=== PATIENT | male | born 1990 | race Caucasian/White ===

== ENCOUNTER 2018-06-29 18:40 | Inpatient (IN) | payer MEDICAID ==
[~2018-06-29] VITALS: Ht 175.3 cm; Wt 58.9 kg
[2018-06-29 21:30] LABS: BASOPHILS % (AUTO) 0.6 % (0.0-2.0); EOSINOPHILS % (AUTO) 0.6 % (1.0-6.0); HEMATOCRIT 46.4 % (41-53); HEMOGLOBIN 15.9 g/dL (13.5-17.5); LYMPHOCYTES # (AUTO) 2.4 K/uL (1.0-4.8); MEAN CORPUSCULAR HEMOGLOBIN 32.3 pg (26.0-34.0); MEAN CORPUSCULAR HGB CONC 34.2 G/dL (31.0-37.0); MEAN CORPUSCULAR VOLUME 94 fL (80-100); MONOCYTES # (AUTO) 1.1 K/uL (0.1-1.0); MONOCYTES % (AUTO) 7.5 % (2.0-9.0); NEUTROPHILS # (AUTO) 10.6 K/uL (1.8-7.7); NEUTROPHILS % (AUTO) 74.3 % (40.0-70.0); PLATELET COUNT (AUTO) 212 K/uL (150-450); RED BLOOD CELL COUNT(AUTO) 4.92 MIL/uL (4.50-5.90)
[2018-06-29] MEDS ORDERED: OLAN10TA3 PO (21:40)
[2018-06-29 21:51] LABS: ANION GAP 13 mmol/L (8-16); CALCIUM, TOTAL 9.4 mg/dL (8.8-10.5); CARBON DIOXIDE 24 mmol/L (22-29); CHLORIDE 104 mmol/L (98-107); CREATININE 1.02 mg/dL (0.60-1.30); GLOMERULAR FILTR. RATE CALC > 60 mL/min (>60); GLUCOSE,RANDOM 93 mg/dL (70-110); POTASSIUM 3.8 mmol/L (3.5-5.1); SODIUM SERUM 141 mmol/L (136-145); UREA NITROGEN, BLOOD 13 mg/dL (7-18)
[2018-06-29 21:53] LABS: ALANINE AMINOTRANSFERASE 22 U/L (12-78); ALBUMIN 4.4 g/dL (3.4-5.0); ALKALINE PHOSPHATASE 81 U/L (46-116); ASPARTATE AMINOTRANSFERASE 25 U/L (15-37); BILIRUBIN,TOTAL 0.8 mg/dL (0.1-1.0); TOTAL PROTEIN, SERUM 7.6 g/dL (6.4-8.2)
[2018-06-29] MEDS ORDERED: LORazepam 2 MG TABLET PO ONE (23:00)
[2018-06-29] MEDS ORDERED: DiphenhydrAMINE HCL 25 MG CAPSULE PO ONE (23:00)
[2018-06-29] MEDS ORDERED: IBUPROFEN 600 MG TABLET PO ONE (23:00)
[2018-06-29] MEDS ORDERED: PERTUSS(ACELL),DIPH,TET VAC/PF 0.5 ML VIAL IM ONE (23:00)
[2018-06-29] MEDS ORDERED: BACITRACIN 0.9 GM PACKET OINTMENT TP ONE (23:00)
[2018-06-29 23:23] LABS: AMPHET/METH SCREEN,URINE NEGATIVE (NEGATIVE); BARBITURATE SCREEN, URINE NEGATIVE (NEGATIVE); BENZODIAZEPINES SCREEN,URINE NEGATIVE (NEGATIVE); CANNABINOID SCREEN,URINE POSITIVE (NEGATIVE); COCAINE SCREEN,URINE NEGATIVE (NEGATIVE); METHADONE SCREEN, URINE NEGATIVE (NEGATIVE); OPIATE SCREEN,URINE NEGATIVE (NEGATIVE)
[2018-06-29 23:25] LABS: PHENCYCLIDINE SCREEN,URINE NEGATIVE (NEGATIVE)
[2018-06-29] MEDS ORDERED: ZOLPIDEM TARTRATE 10 MG TABLET PO PRN (23:45)
[2018-06-29] MEDS ORDERED: LORazepam 2 MG TABLET PO PRN (23:45)
[2018-06-29] MEDS ORDERED: OLANZapine 5 MG RAPDIS TABLET PO PRN (23:45)
[2018-06-30 00:15] LABS: CHOL/HDL RATIO 3.4 (4.2-7.3)
[2018-06-30] MEDS ORDERED: LORazepam 2 MG/ML VIAL IM ONE (01:00)
[2018-06-30] MEDS ORDERED: HALOPERIDOL LACTATE 5 MG/ML VIAL IM ONE (01:00)
[2018-06-30] MEDS ORDERED: DiphenhydrAMINE HCL 50 MG/ML VIAL IM ONE (01:00)
[2018-06-30 01:55] VITALS: BP 112/76
[2018-06-30 08:33] VITALS: BP 108/84
[2018-06-30 09:06] LABS: HEMOGLOBIN A1C 5.3 % (4.5-6.2)
[2018-06-30 09:39] LABS: FREE T4 (FREE THYROXINE) 1.19 ng/dL (0.76-1.46); THYROID STIMULATING HORMONE 1.81 uIU/mL (0.36-3.74)
[2018-06-30] MEDS ORDERED: TUBERCULIN, PURIFIED PROTEIN DERIVATIVE 5 TU/0.1 ML SYG ID ONE (13:00)
[2018-06-30] MEDS ORDERED: PROMETHAZINE HCL 25 MG TABLET PO PRN (13:00)
[2018-06-30] MEDS ORDERED: LOPERAMIDE HCL 2 MG CAPSULE PO PRN (13:00)
[2018-06-30] MEDS ORDERED: MAG HYDROX/AL HYDROX/SIMETH ES 30 ML SUSPENSION UDCUP PO PRN (13:00)
[2018-06-30] MEDS ORDERED: ACETAMINOPHEN 325 MG TABLET PO PRN (13:00)
[2018-06-30] MEDS ORDERED: HydrOXYzine PAMOATE 50 MG CAPSULE PO PRN (13:00)
[2018-06-30] MEDS ORDERED: MAGNESIUM HYDROXIDE SUSPENSION 30 ML UDCUP PO PRN (13:00)
[2018-06-30] MEDS ORDERED: GuaiFENesin/D-METHORPHAN [SUGAR-FREE] 200-20MG/10 ML SYRUP UDCUP PO PRN (13:00)
[2018-06-30 16:09] VITALS: BP 116/74
[2018-06-30] MEDS: THIAMINE HCL 100 MG TABLET PO SCH (16:22)
[2018-06-30] MEDS: DIVALPROEX SODIUM 500 MG ER TABLET PO SCH (20:05)
[2018-06-30] MEDS ORDERED: OLANZapine 5 MG RAPDIS TABLET PO SCH (21:00)
[2018-06-30] MEDS ORDERED: ARIPiprazole 10 MG TABLET PO SCH (21:00)
[2018-07-01 01:00] VITALS: BP 115/73
[2018-07-01 08:11] LABS: BASOPHILS % (AUTO) 0.7 % (0.0-2.0); EOSINOPHILS % (AUTO) 3.3 % (1.0-6.0); HEMATOCRIT 44.5 % (41-53); HEMOGLOBIN 15.2 g/dL (13.5-17.5); LYMPHOCYTES % (AUTO) 27.8 % (22.0-44.0); MEAN CORPUSCULAR HEMOGLOBIN 32.7 pg (26.0-34.0); MEAN CORPUSCULAR HGB CONC 34.2 G/dL (31.0-37.0); MEAN CORPUSCULAR VOLUME 96 fL (80-100); MONOCYTES # (AUTO) 0.5 K/uL (0.1-1.0); MONOCYTES % (AUTO) 6.9 % (2.0-9.0); NEUTROPHILS # (AUTO) 4.3 K/uL (1.8-7.7); NEUTROPHILS % (AUTO) 61.3 % (40.0-70.0); PLATELET COUNT (AUTO) 187 K/uL (150-450); RED BLOOD CELL COUNT(AUTO) 4.66 MIL/uL (4.50-5.90); RED CELL DISTRIBUTION WIDTH 12.9 % (11.5-14.5)
[2018-07-01] MEDS: MULTIVITAMINS WITH MINERALS, THERAPEUTIC TABLET PO SCH (08:46)
[2018-07-01] MEDS: NALTREXONE HCL 50 MG TABLET PO SCH (08:46)
[2018-07-01] MEDS: THIAMINE HCL 100 MG TABLET PO SCH ×2 (08:46→16:56)
[2018-07-01] MEDS: FOLIC ACID 1 MG TABLET PO SCH (08:46)
[2018-07-01 09:14] VITALS: BP 101/65
[2018-07-01 16:49] VITALS: BP 119/57
[2018-07-01] MEDS ORDERED: NALT50TA PO (17:20)
[2018-07-01] MEDS ORDERED: ARIP15TA2 PO (17:20)
[2018-07-01] MEDS ORDERED: DIVA500T52 PO (17:20)
[2018-07-01] MEDS: DIVALPROEX SODIUM 500 MG ER TABLET PO SCH (20:16)
[2018-07-01] MEDS ORDERED: ARIPiprazole 15 MG TABLET PO SCH (21:00)
[2018-07-02 03:53] VITALS: BP 117/74
[2018-07-02] MEDS ORDERED: DIVA-78 PO (08:14)
[2018-07-02] MEDS ORDERED: NALT50TA6 PO (08:14)
[2018-07-02] MEDS ORDERED: ARIP15TA2 PO (08:14)
[2018-07-02 08:36] VITALS: BP 120/64
[2018-07-02] MEDS: THIAMINE HCL 100 MG TABLET PO SCH (09:08)
[2018-07-02] MEDS: MULTIVITAMINS WITH MINERALS, THERAPEUTIC TABLET PO SCH (09:08)
[2018-07-02] MEDS: NALTREXONE HCL 50 MG TABLET PO SCH (09:08)
[2018-07-02] MEDS: FOLIC ACID 1 MG TABLET PO SCH (09:08)
== END 2018-07-02 10:50 | disposition home or self-care (01) | DRG 750 ==
LOC: EMS 18:41 → B2S 23:51
PROVIDERS: ADMIT Psychiatry & Neurology Psychiatry; ATTEND Psychiatry & Neurology Psychiatry
DX: F20.0 Paranoid schizophrenia (principal); D72.829 Elevated white blood cell count, unspecified; Z91.19 Patient's noncompliance with other medical treatment and regimen; F12.90 Cannabis use, unspecified, uncomplicated; S60.222A Contusion of left hand, initial encounter; S60.221A Contusion of right hand, initial encounter; S61.211A Laceration without foreign body of left index finger without damage to nail, initial encounter; X58.XXXA Exposure to other specified factors, initial encounter; Y93.89 Activity, other specified; Z81.8 Family history of other mental and behavioral disorders; Z87.891 Personal history of nicotine dependence; Y92.89 Other specified places as the place of occurrence of the external cause; Y99.8 Other external cause status; Z28.21 Immunization not carried out because of patient refusal
CPT/HCPCS: 80074; 83036; 84439; 84443; 96372; G0480; J1200; J1630; J2060

== ENCOUNTER 2018-09-07 16:20 | Inpatient (IN) | payer MEDICAID, OTHER ==
[~2018-09-07] VITALS: Ht 175.3 cm; Wt 58.6 kg
[~2018-09-07 16:20] MED LIST: ARIP15TA2 PO; DIVA-78 PO; DIVA500T52 PO; NALT50TA PO; NALT50TA6 PO
[2018-09-07] MEDS ORDERED: HALOPERIDOL LACTATE 5 MG/ML VIAL IM ONE (16:30)
[2018-09-07] MEDS ORDERED: LORazepam 2 MG/ML VIAL IM ONE (16:30)
[2018-09-07] MEDS ORDERED: DiphenhydrAMINE HCL 50 MG/ML VIAL IM ONE (16:30)
[2018-09-07] MEDS ORDERED: GuaiFENesin/D-METHORPHAN [SUGAR-FREE] 200-20MG/10 ML SYRUP UDCUP PO PRN (18:30)
[2018-09-07] MEDS ORDERED: HydrOXYzine PAMOATE 50 MG CAPSULE PO PRN (18:30)
[2018-09-07] MEDS ORDERED: ZOLPIDEM TARTRATE 10 MG TABLET PO PRN (18:30)
[2018-09-07] MEDS ORDERED: OLANZapine 5 MG RAPDIS TABLET PO PRN (18:30)
[2018-09-07] MEDS ORDERED: PROMETHAZINE HCL 25 MG TABLET PO PRN (18:30)
[2018-09-07] MEDS ORDERED: LORazepam 2 MG TABLET PO PRN (18:30)
[2018-09-07] MEDS ORDERED: MAG HYDROX/AL HYDROX/SIMETH ES 30 ML SUSPENSION UDCUP PO PRN (18:30)
[2018-09-07] MEDS ORDERED: MAGNESIUM HYDROXIDE SUSPENSION 30 ML UDCUP PO PRN (18:30)
[2018-09-07] MEDS ORDERED: ACETAMINOPHEN 325 MG TABLET PO PRN (18:30)
[2018-09-07] MEDS ORDERED: LOPERAMIDE HCL 2 MG CAPSULE PO PRN (18:30)
[2018-09-07 18:59] LABS: BASOPHILS % (AUTO) 0.7 % (0.0-2.0); EOSINOPHILS % (AUTO) 0.2 % (1.0-6.0); HEMATOCRIT 42.4 % (41-53); HEMOGLOBIN 14.4 g/dL (13.5-17.5); LYMPHOCYTES # (AUTO) 1.1 K/uL (1.0-4.8); LYMPHOCYTES % (AUTO) 13.9 % (22.0-44.0); MEAN CORPUSCULAR HEMOGLOBIN 32.6 pg (26.0-34.0); MEAN CORPUSCULAR VOLUME 96 fL (80-100); MONOCYTES # (AUTO) 0.6 K/uL (0.1-1.0); MONOCYTES % (AUTO) 7.7 % (2.0-9.0); NEUTROPHILS # (AUTO) 6.4 K/uL (1.8-7.7); NEUTROPHILS % (AUTO) 77.5 % (40.0-70.0); PLATELET COUNT (AUTO) 184 K/uL (150-450); RED BLOOD CELL COUNT(AUTO) 4.43 MIL/uL (4.50-5.90); RED CELL DISTRIBUTION WIDTH 13.2 % (11.5-14.5)
[2018-09-07 19:17] LABS: ANION GAP 12 mmol/L (8-16); CARBON DIOXIDE 27 mmol/L (22-29); CHLORIDE 102 mmol/L (98-107); GLOMERULAR FILTR. RATE CALC > 60 mL/min (>60); GLUCOSE,RANDOM 92 mg/dL (70-110); POTASSIUM 4.4 mmol/L (3.5-5.1); SODIUM SERUM 141 mmol/L (136-145); UREA NITROGEN, BLOOD 14 mg/dL (7-18)
[2018-09-07 19:54] LABS: ALANINE AMINOTRANSFERASE 16 U/L (12-78); ALBUMIN 4.2 g/dL (3.4-5.0); ALKALINE PHOSPHATASE 66 U/L (46-116); ASPARTATE AMINOTRANSFERASE 25 U/L (15-37); BILIRUBIN,TOTAL 1.2 mg/dL (0.1-1.0)
[2018-09-07] MEDS: THIAMINE HCL 100 MG TABLET PO SCH (22:13)
[2018-09-07] MEDS: DIVALPROEX SODIUM 500 MG ER TABLET PO SCH (22:13)
[2018-09-08] MEDS: FOLIC ACID 1 MG TABLET PO SCH (08:11)
[2018-09-08] MEDS: THIAMINE HCL 100 MG TABLET PO SCH ×2 (08:11→17:06)
[2018-09-08] MEDS: NALTREXONE HCL 50 MG TABLET PO SCH (08:11)
[2018-09-08] MEDS: MULTIVITAMINS WITH MINERALS, THERAPEUTIC TABLET PO SCH (08:11)
[2018-09-08] MEDS: ARIPiprazole 15 MG TABLET PO SCH (08:18)
[2018-09-08 12:42] LABS: AMPHET/METH SCREEN,URINE NEGATIVE (NEGATIVE); BARBITURATE SCREEN, URINE NEGATIVE (NEGATIVE); BENZODIAZEPINES SCREEN,URINE NEGATIVE (NEGATIVE); CANNABINOID SCREEN,URINE POSITIVE (NEGATIVE); COCAINE SCREEN,URINE NEGATIVE (NEGATIVE); METHADONE SCREEN, URINE NEGATIVE (NEGATIVE); OPIATE SCREEN,URINE NEGATIVE (NEGATIVE)
[2018-09-08 12:43] LABS: PHENCYCLIDINE SCREEN,URINE NEGATIVE (NEGATIVE)
[2018-09-08 16:16] VITALS: BP 125/68
[2018-09-08 17:37] VITALS: BP 125/68
[2018-09-08] MEDS: DIVALPROEX SODIUM 500 MG ER TABLET PO SCH (20:36)
[2018-09-09 09:40] VITALS: BP 104/51
[2018-09-09] MEDS: FOLIC ACID 1 MG TABLET PO SCH (10:24)
[2018-09-09] MEDS: MULTIVITAMINS WITH MINERALS, THERAPEUTIC TABLET PO SCH (10:24)
[2018-09-09] MEDS: NALTREXONE HCL 50 MG TABLET PO SCH (10:24)
[2018-09-09] MEDS: ARIPiprazole 15 MG TABLET PO SCH (10:24)
[2018-09-09] MEDS: THIAMINE HCL 100 MG TABLET PO SCH ×2 (10:24→16:56)
[2018-09-09 16:03] VITALS: BP 126/79
[2018-09-09] MEDS: DIVALPROEX SODIUM 500 MG ER TABLET PO SCH (20:33)
[2018-09-09] MEDS ORDERED: OLANZapine 5 MG RAPDIS TABLET PO SCH (21:00)
[2018-09-10] MEDS: THIAMINE HCL 100 MG TABLET PO SCH ×2 (08:31→16:22)
[2018-09-10] MEDS: MULTIVITAMINS WITH MINERALS, THERAPEUTIC TABLET PO SCH (08:31)
[2018-09-10] MEDS: NALTREXONE HCL 50 MG TABLET PO SCH (08:31)
[2018-09-10] MEDS: FOLIC ACID 1 MG TABLET PO SCH (08:31)
[2018-09-10 08:45] VITALS: BP 112/71
[2018-09-10 16:30] VITALS: BP 116/74
[2018-09-10] MEDS ORDERED: NALT50TA PO (16:58)
[2018-09-10] MEDS ORDERED: DIVA500T52 PO (16:58)
[2018-09-10] MEDS ORDERED: OLAN10TA22 PO (16:58)
[2018-09-10] MEDS: DIVALPROEX SODIUM 500 MG ER TABLET PO SCH (20:29)
[2018-09-10] MEDS ORDERED: OLANZapine 10 MG RAPDIS TABLET PO SCH (21:00)
[2018-09-11 08:18] VITALS: BP 135/91
[2018-09-11] MEDS: NALTREXONE HCL 50 MG TABLET PO SCH (08:55)
[2018-09-11] MEDS: THIAMINE HCL 100 MG TABLET PO SCH (08:55)
[2018-09-11] MEDS: FOLIC ACID 1 MG TABLET PO SCH (08:55)
[2018-09-11] MEDS: MULTIVITAMINS WITH MINERALS, THERAPEUTIC TABLET PO SCH (08:55)
== END 2018-09-11 11:30 | disposition home or self-care (01) | DRG 750 ==
LOC: EMS 16:22 → 3EC 09-08 15:47
PROVIDERS: ADMIT Psychiatry & Neurology Psychiatry; ATTEND Psychiatry & Neurology Psychiatry
DX: F20.0 Paranoid schizophrenia (principal); R17 Unspecified jaundice; F12.90 Cannabis use, unspecified, uncomplicated; D72.829 Elevated white blood cell count, unspecified; F17.210 Nicotine dependence, cigarettes, uncomplicated; Z81.8 Family history of other mental and behavioral disorders; Z91.14 Patient's other noncompliance with medication regimen
CPT/HCPCS: 96372; 99291; G0480; J1200; J1630; J2060

== ENCOUNTER 2018-10-21 18:28 | Inpatient (IN) | payer MEDICAID, OTHER ==
[~2018-10-21] VITALS: Ht 170.2 cm; Wt 59.1 kg
[~2018-10-21 18:28] MED LIST changes: -ARIP15TA2 PO; -DIVA-78 PO; -NALT50TA6 PO; +OLAN10TA22 PO
[2018-10-21 20:36] LABS: BASOPHILS % (AUTO) 0.6 % (0.0-2.0); EOSINOPHILS % (AUTO) 1.7 % (1.0-6.0); HEMATOCRIT 42.6 % (41-53); HEMOGLOBIN 14.2 g/dL (13.5-17.5); LYMPHOCYTES # (AUTO) 1.7 K/uL (1.0-4.8); LYMPHOCYTES % (AUTO) 19.3 % (22.0-44.0); MEAN CORPUSCULAR HEMOGLOBIN 32.7 pg (26.0-34.0); MEAN CORPUSCULAR HGB CONC 33.3 G/dL (31.0-37.0); MEAN CORPUSCULAR VOLUME 98 fL (80-100); MONOCYTES # (AUTO) 0.5 K/uL (0.1-1.0); MONOCYTES % (AUTO) 5.9 % (2.0-9.0); NEUTROPHILS # (AUTO) 6.3 K/uL (1.8-7.7); NEUTROPHILS % (AUTO) 72.5 % (40.0-70.0); PLATELET COUNT (AUTO) 195 K/uL (150-450); RED BLOOD CELL COUNT(AUTO) 4.34 MIL/uL (4.50-5.90); RED CELL DISTRIBUTION WIDTH 13.1 % (11.5-14.5)
[2018-10-21 20:46] LABS: ANION GAP 9 mmol/L (8-16); CALCIUM, TOTAL 9.2 mg/dL (8.8-10.5); CARBON DIOXIDE 29 mmol/L (22-29); CHLORIDE 103 mmol/L (98-107); CREATININE 0.98 mg/dL (0.60-1.30); GLOMERULAR FILTR. RATE CALC > 60 mL/min (>60); GLUCOSE,RANDOM 105 mg/dL (70-110); POTASSIUM 3.9 mmol/L (3.5-5.1); SODIUM SERUM 141 mmol/L (136-145); UREA NITROGEN, BLOOD 9 mg/dL (7-18)
[2018-10-21 20:53] LABS: ALANINE AMINOTRANSFERASE 16 U/L (12-78); ALKALINE PHOSPHATASE 76 U/L (46-116); ASPARTATE AMINOTRANSFERASE 17 U/L (15-37); BILIRUBIN,TOTAL 0.7 mg/dL (0.1-1.0); VALPROIC ACID 33 mcg/mL (50-100)
[2018-10-22] MEDS ORDERED: ZOLPIDEM TARTRATE 10 MG TABLET PO PRN
[2018-10-22] MEDS ORDERED: LORazepam 2 MG TABLET PO PRN
[2018-10-22] MEDS ORDERED: HALOPERIDOL 5 MG TABLET PO PRN
[2018-10-22 02:01] VITALS: BP 121/87
[2018-10-22 08:10] VITALS: BP 109/68
[2018-10-22] MEDS ORDERED: ACETAMINOPHEN 325 MG TABLET PO PRN (09:15)
[2018-10-22] MEDS ORDERED: IBUPROFEN 600 MG TABLET PO PRN (09:15)
[2018-10-22 10:18] LABS: AMPHET/METH SCREEN,URINE NEGATIVE (NEGATIVE); BARBITURATE SCREEN, URINE NEGATIVE (NEGATIVE); BENZODIAZEPINES SCREEN,URINE NEGATIVE (NEGATIVE); CANNABINOID SCREEN,URINE POSITIVE (NEGATIVE); COCAINE SCREEN,URINE NEGATIVE (NEGATIVE); METHADONE SCREEN, URINE NEGATIVE (NEGATIVE); OPIATE SCREEN,URINE NEGATIVE (NEGATIVE); PHENCYCLIDINE SCREEN,URINE NEGATIVE (NEGATIVE)
[2018-10-22 10:23] LABS: APPEARANCE,URINE CLEAR (CLEAR); BILIRUBIN,URINE NEGATIVE (NEGATIVE); GLUCOSE, URINE (UA) NEGATIVE (NEGATIVE); KETONES,URINE NEGATIVE (NEGATIVE); LEUKOCYTE ESTERASE ,URINE NEGATIVE (NEGATIVE); NITRATE,URINE NEGATIVE (NEGATIVE); OCCULT BLOOD,URINE NEGATIVE (NEGATIVE); PROTEIN,URINE NEGATIVE (NEGATIVE)
[2018-10-22 16:09] VITALS: BP 130/79
[2018-10-22] MEDS: DIVALPROEX SODIUM 500 MG ER TABLET PO SCH (20:59)
[2018-10-22] MEDS: OLANZapine 10 MG RAPDIS TABLET PO SCH (20:59)
[2018-10-23 11:13] VITALS: BP 99/63
[2018-10-23] MEDS: NALTREXONE HCL 50 MG TABLET PO SCH (12:44)
[2018-10-23 16:46] VITALS: BP 102/61
[2018-10-23] MEDS: DIVALPROEX SODIUM 500 MG ER TABLET PO SCH (20:25)
[2018-10-23] MEDS: OLANZapine 10 MG RAPDIS TABLET PO SCH (20:25)
[2018-10-24 04:50] VITALS: BP 119/76
[2018-10-24 08:05] VITALS: BP 126/75
[2018-10-24] MEDS: NALTREXONE HCL 50 MG TABLET PO SCH (08:58)
[2018-10-24 19:09] VITALS: BP 133/74
[2018-10-24] MEDS: OLANZapine 10 MG RAPDIS TABLET PO SCH (20:44)
[2018-10-24] MEDS: DIVALPROEX SODIUM 500 MG ER TABLET PO SCH (20:44)
[2018-10-25 08:05] VITALS: BP 98/50
[2018-10-25] MEDS: NALTREXONE HCL 50 MG TABLET PO SCH (08:40)
[2018-10-25 20:56] VITALS: BP 105/62
[2018-10-25] MEDS: DIVALPROEX SODIUM 500 MG ER TABLET PO SCH (21:00)
[2018-10-25] MEDS: OLANZapine 10 MG RAPDIS TABLET PO SCH (21:00)
[2018-10-26] MEDS: NALTREXONE HCL 50 MG TABLET PO SCH (09:04)
[2018-10-26 10:45] VITALS: BP 96/52
== END 2018-10-26 10:00 | disposition home or self-care (01) | DRG 750 ==
LOC: EMS 18:29 → 3EI 10-22 00:09
PROVIDERS: ADMIT Psychiatry & Neurology Psychiatry; ATTEND Psychiatry & Neurology Psychiatry
DX: F20.0 Paranoid schizophrenia (principal); Z91.19 Patient's noncompliance with other medical treatment and regimen; F12.90 Cannabis use, unspecified, uncomplicated; F17.210 Nicotine dependence, cigarettes, uncomplicated; G43.909 Migraine, unspecified, not intractable, without status migrainosus; Z71.6 Tobacco abuse counseling; Z79.899 Other long term (current) drug therapy
CPT/HCPCS: 80307; G0480

== ENCOUNTER 2019-03-28 09:39 | Inpatient (IN) | payer MEDICAID, OTHER ==
[~2019-03-28] VITALS: Ht 167.6 cm; Wt 60.3 kg
[2019-03-28 10:49] LABS: BASOPHILS % (AUTO) 1.2 % (0.0-2.0); EOSINOPHILS % (AUTO) 1.8 % (1.0-6.0); HEMATOCRIT 48.3 % (41-53); HEMOGLOBIN 16.7 g/dL (13.5-17.5); LYMPHOCYTES # (AUTO) 1.4 K/uL (1.0-4.8); LYMPHOCYTES % (AUTO) 13.3 % (22.0-44.0); MEAN CORPUSCULAR HEMOGLOBIN 32.5 pg (26.0-34.0); MEAN CORPUSCULAR HGB CONC 34.7 G/dL (31.0-37.0); MEAN CORPUSCULAR VOLUME 94 fL (80-100); MONOCYTES # (AUTO) 0.5 K/uL (0.1-1.0); NEUTROPHILS % (AUTO) 78.7 % (40.0-70.0); PLATELET COUNT (AUTO) 245 K/uL (150-450); RED BLOOD CELL COUNT(AUTO) 5.16 MIL/uL (4.50-5.90); RED CELL DISTRIBUTION WIDTH 12.6 % (11.5-14.5)
[2019-03-28 10:59] LABS: ANION GAP 7 mmol/L (8-16); CALCIUM, TOTAL 9.4 mg/dL (8.8-10.5); CARBON DIOXIDE 30 mmol/L (22-29); CHLORIDE 104 mmol/L (98-107); CREATININE 0.81 mg/dL (0.60-1.30); GLOMERULAR FILTR. RATE CALC > 60 mL/min (>60); GLUCOSE,RANDOM 100 mg/dL (70-110); POTASSIUM 4.3 mmol/L (3.5-5.1); SODIUM SERUM 141 mmol/L (136-145); UREA NITROGEN, BLOOD 7 mg/dL (7-18)
[2019-03-28 11:01] LABS: AMPHET/METH SCREEN,URINE NEGATIVE (NEGATIVE); BARBITURATE SCREEN, URINE NEGATIVE (NEGATIVE); BENZODIAZEPINES SCREEN,URINE NEGATIVE (NEGATIVE); CANNABINOID SCREEN,URINE POSITIVE (NEGATIVE); COCAINE SCREEN,URINE NEGATIVE (NEGATIVE); METHADONE SCREEN, URINE NEGATIVE (NEGATIVE); OPIATE SCREEN,URINE NEGATIVE (NEGATIVE); PHENCYCLIDINE SCREEN,URINE NEGATIVE (NEGATIVE)
[2019-03-28 11:05] LABS: ALANINE AMINOTRANSFERASE 11 U/L (12-78); ALBUMIN 4.4 g/dL (3.4-5.0); ALKALINE PHOSPHATASE 113 U/L (46-116); ASPARTATE AMINOTRANSFERASE 17 U/L (15-37); BILIRUBIN,TOTAL 0.6 mg/dL (0.1-1.0); TOTAL PROTEIN, SERUM 8.2 g/dL (6.4-8.2)
[2019-03-28] MEDS ORDERED: DiphenhydrAMINE HCL 50 MG/ML VIAL ONE (11:42)
[2019-03-28] MEDS ORDERED: LORazepam 2 MG/ML VIAL ONE (11:42)
[2019-03-28] MEDS ORDERED: HALOPERIDOL LACTATE 5 MG/ML VIAL ONE (11:42)
[2019-03-28] MEDS ORDERED: LORazepam 2 MG/ML VIAL IM ONE (11:45)
[2019-03-28] MEDS ORDERED: HALOPERIDOL LACTATE 5 MG/ML VIAL IM ONE (11:45)
[2019-03-28] MEDS ORDERED: DiphenhydrAMINE HCL 50 MG/ML VIAL IM ONE (11:45)
[2019-03-28] MEDS ORDERED: HALOPERIDOL 5 MG TABLET PO PRN (14:30)
[2019-03-28] MEDS ORDERED: LORazepam 2 MG TABLET PO PRN (14:30)
[2019-03-28] MEDS ORDERED: ZOLPIDEM TARTRATE 10 MG TABLET PO PRN (14:30)
[2019-03-28 17:37] VITALS: BP 142/86
[2019-03-28] MEDS: DIVALPROEX SODIUM 500 MG ER TABLET PO SCH (20:27)
[2019-03-28] MEDS: OLANZapine 10 MG RAPDIS TABLET PO SCH (20:39)
[2019-03-29 12:54] VITALS: BP 109/57
[2019-03-29] MEDS ORDERED: GuaiFENesin/D-METHORPHAN [SUGAR-FREE] 200-20MG/10 ML SYRUP UDCUP PO PRN (14:45)
[2019-03-29] MEDS ORDERED: ACETAMINOPHEN 325 MG TABLET PO PRN (14:45)
[2019-03-29] MEDS ORDERED: NICOTINE 14 MG/24 HOUR PATCH TD PRN (14:45)
[2019-03-29] MEDS ORDERED: ALBUTEROL SULFATE HFA 90 MCG/PUFF 8 GM INHALER IH PRN (14:45)
[2019-03-29] MEDS ORDERED: MAG HYDROX/AL HYDROX/SIMETH ES 30 ML SUSPENSION UDCUP PO PRN (14:45)
[2019-03-29] MEDS ORDERED: LOPERAMIDE HCL 2 MG CAPSULE PO PRN (14:45)
[2019-03-29] MEDS ORDERED: CloNIDine HCL 0.1 MG TABLET PO PRN (14:45)
[2019-03-29] MEDS ORDERED: ONDANSETRON HCL 4 MG TABLET PO PRN (14:45)
[2019-03-29] MEDS ORDERED: DOCUSATE SODIUM 100 MG CAPSULE PO PRN (14:45)
[2019-03-29] MEDS ORDERED: IBUPROFEN 400 MG TABLET PO PRN (14:45)
[2019-03-29] MEDS ORDERED: PETROLATUM,WHITE 28 GM JELLY TP PRN (14:45)
[2019-03-29] MEDS ORDERED: MAGNESIUM HYDROXIDE SUSPENSION 30 ML UDCUP PO PRN (14:45)
[2019-03-29 17:17] VITALS: BP 122/77
[2019-03-29] MEDS: DIVALPROEX SODIUM 500 MG ER TABLET PO SCH (20:06)
[2019-03-29] MEDS: OLANZapine 10 MG RAPDIS TABLET PO SCH (20:06)
[2019-03-30 09:32] VITALS: BP 135/82
[2019-03-30 18:50] VITALS: BP 135/87
[2019-03-30] MEDS: OLANZapine 10 MG RAPDIS TABLET PO SCH (20:08)
[2019-03-30] MEDS: DIVALPROEX SODIUM 500 MG ER TABLET PO SCH (20:08)
[2019-03-31] MEDS: OLANZapine 7.5 MG TABLET PO SCH ×2 (10:28→20:14)
[2019-03-31 13:38] VITALS: BP 115/74
[2019-03-31 18:00] VITALS: BP 110/55
[2019-03-31] MEDS: DIVALPROEX SODIUM 500 MG ER TABLET PO SCH (20:19)
[2019-04-01 08:35] VITALS: BP 128/87
[2019-04-01] MEDS: OLANZapine 7.5 MG TABLET PO SCH ×2 (10:47→20:16)
[2019-04-01 17:24] VITALS: BP 96/54
[2019-04-01] MEDS: DIVALPROEX SODIUM 500 MG ER TABLET PO SCH (20:19)
[2019-04-02] MEDS: OLANZapine 7.5 MG TABLET PO SCH (08:28)
[2019-04-02 08:59] VITALS: BP 106/65
[2019-04-02] MEDS ORDERED: OLAN7.5T9 PO (10:22)
== END 2019-04-02 14:55 | disposition home or self-care (01) | DRG 885 ==
LOC: EMS 09:42 → 3EI 16:52
DX: F20.0 Paranoid schizophrenia (principal); F10.10 Alcohol abuse, uncomplicated; F12.10 Cannabis abuse, uncomplicated; F32.9 Major depressive disorder, single episode, unspecified; Z87.891 Personal history of nicotine dependence
CPT/HCPCS: G0480; J1200; J1630; J2060

== ENCOUNTER 2019-04-08 05:40 | Inpatient (IN) | payer MEDICAID, OTHER ==
[~2019-04-08] VITALS: Ht 175.3 cm; Wt 62.6 kg
[~2019-04-08 05:40] MED LIST changes: -DIVA500T52 PO; -NALT50TA PO; -OLAN10TA22 PO; +OLAN7.5T9 PO
[2019-04-08 08:28] LABS: BASOPHILS % (AUTO) 0.9 % (0.0-2.0); EOSINOPHILS % (AUTO) 2.8 % (1.0-6.0); HEMATOCRIT 41.5 % (41-53); HEMOGLOBIN 14.2 g/dL (13.5-17.5); LYMPHOCYTES # (AUTO) 1.6 K/uL (1.0-4.8); LYMPHOCYTES % (AUTO) 18.1 % (22.0-44.0); MEAN CORPUSCULAR HEMOGLOBIN 32.2 pg (26.0-34.0); MEAN CORPUSCULAR HGB CONC 34.2 G/dL (31.0-37.0); MEAN CORPUSCULAR VOLUME 94 fL (80-100); MONOCYTES # (AUTO) 0.5 K/uL (0.1-1.0); MONOCYTES % (AUTO) 5.9 % (2.0-9.0); NEUTROPHILS # (AUTO) 6.2 K/uL (1.8-7.7); NEUTROPHILS % (AUTO) 72.3 % (40.0-70.0); PLATELET COUNT (AUTO) 195 K/uL (150-450); RED CELL DISTRIBUTION WIDTH 12.8 % (11.5-14.5)
[2019-04-08 08:37] LABS: ANION GAP 4 mmol/L (8-16); CALCIUM, TOTAL 8.6 mg/dL (8.8-10.5); CARBON DIOXIDE 31 mmol/L (22-29); CHLORIDE 107 mmol/L (98-107); GLOMERULAR FILTR. RATE CALC > 60 mL/min (>60); GLUCOSE,RANDOM 101 mg/dL (70-110); POTASSIUM 4.5 mmol/L (3.5-5.1); SODIUM SERUM 142 mmol/L (136-145); UREA NITROGEN, BLOOD 5 mg/dL (7-18)
[2019-04-08 08:43] LABS: ALANINE AMINOTRANSFERASE 18 U/L (12-78); ALBUMIN 3.2 g/dL (3.4-5.0); ALKALINE PHOSPHATASE 81 U/L (46-116); ASPARTATE AMINOTRANSFERASE 14 U/L (15-37); BILIRUBIN,TOTAL 0.3 mg/dL (0.1-1.0); TOTAL PROTEIN, SERUM 6.4 g/dL (6.4-8.2)
[2019-04-08] MEDS ORDERED: ZOLPIDEM TARTRATE 10 MG TABLET PO PRN (09:15)
[2019-04-08] MEDS ORDERED: LORazepam 2 MG TABLET PO PRN (09:15)
[2019-04-08] MEDS ORDERED: HALOPERIDOL 5 MG TABLET PO PRN (09:15)
[2019-04-08 12:17] VITALS: BP 111/61
[2019-04-08] MEDS ORDERED: INFLUENZA VIRUS VACCINE QVS 2019-20 (3YR+)/PF 60 MCG/0.5 ML SYRINGE IM ONE (13:00)
[2019-04-08 16:03] VITALS: BP 123/63
[2019-04-09 00:20] VITALS: BP 112/65
[2019-04-09] MEDS ORDERED: GuaiFENesin/D-METHORPHAN [SUGAR-FREE] 200-20MG/10 ML SYRUP UDCUP PO PRN (06:30)
[2019-04-09] MEDS ORDERED: IBUPROFEN 400 MG TABLET PO PRN (06:30)
[2019-04-09] MEDS ORDERED: MAGNESIUM HYDROXIDE SUSPENSION 30 ML UDCUP PO PRN (06:30)
[2019-04-09] MEDS ORDERED: DOCUSATE SODIUM 100 MG CAPSULE PO PRN (06:30)
[2019-04-09] MEDS ORDERED: ONDANSETRON HCL 4 MG TABLET PO PRN (06:30)
[2019-04-09] MEDS ORDERED: ALBUTEROL SULFATE HFA 90 MCG/PUFF 8 GM INHALER IH PRN (06:30)
[2019-04-09] MEDS ORDERED: LOPERAMIDE HCL 2 MG CAPSULE PO PRN (06:30)
[2019-04-09] MEDS ORDERED: MAG HYDROX/AL HYDROX/SIMETH ES 30 ML SUSPENSION UDCUP PO PRN (06:30)
[2019-04-09] MEDS ORDERED: CloNIDine HCL 0.1 MG TABLET PO PRN (06:30)
[2019-04-09] MEDS ORDERED: NICOTINE 14 MG/24 HOUR PATCH TD PRN (06:30)
[2019-04-09] MEDS ORDERED: PETROLATUM,WHITE 28 GM JELLY TP PRN (06:30)
[2019-04-09] MEDS ORDERED: ACETAMINOPHEN 325 MG TABLET PO PRN (06:30)
[2019-04-09 08:07] LABS: CHOL/HDL RATIO 4.8 (4.2-7.3); FREE T4 (FREE THYROXINE) 0.95 ng/dL (0.76-1.46); THYROID STIMULATING HORMONE 0.77 uIU/mL (0.36-3.74)
[2019-04-09 08:37] VITALS: BP 125/76
[2019-04-09 16:12] VITALS: BP 123/89
[2019-04-09] MEDS: OLANZapine 10 MG TABLET PO SCH (20:12)
[2019-04-10 04:55] VITALS: BP 110/78
[2019-04-10] MEDS: OLANZapine 10 MG TABLET PO SCH ×2 (11:03→20:00)
[2019-04-10] MEDS: GABAPENTIN 300 MG CAPSULE PO SCH (16:21)
[2019-04-10 17:14] VITALS: BP 126/73
[2019-04-11 02:13] VITALS: BP 121/83
[2019-04-11] MEDS: GABAPENTIN 300 MG CAPSULE PO SCH ×2 (08:16→16:10)
[2019-04-11] MEDS: OLANZapine 10 MG TABLET PO SCH ×2 (08:16→20:36)
[2019-04-11 08:44] VITALS: BP 124/90
[2019-04-11 16:27] VITALS: BP 108/69
[2019-04-12 00:33] VITALS: BP 102/64
[2019-04-12] MEDS: OLANZapine 10 MG TABLET PO SCH (08:18)
[2019-04-12] MEDS: GABAPENTIN 300 MG CAPSULE PO SCH (08:18)
[2019-04-12 08:58] VITALS: BP 147/85
[2019-04-12] MEDS ORDERED: GABA-531 PO (12:00)
[2019-04-12] MEDS ORDERED: OLAN7.5T2 PO (12:00)
[2019-04-12 16:18] VITALS: BP 124/77
== END 2019-04-12 15:50 | disposition home or self-care (01) | DRG 750 ==
LOC: EMS 05:41 → B2S 11:22
DX: F20.0 Paranoid schizophrenia (principal); D64.9 Anemia, unspecified; F12.10 Cannabis abuse, uncomplicated; Z23 Encounter for immunization; F10.10 Alcohol abuse, uncomplicated; F17.200 Nicotine dependence, unspecified, uncomplicated; F32.9 Major depressive disorder, single episode, unspecified; F41.9 Anxiety disorder, unspecified
CPT/HCPCS: 84439; 84443; 87081; 90686; G0480

== ENCOUNTER 2020-10-17 08:55 | Emergency (ER) | payer MEDICAID, OTHER ==
[~2020-10-17] VITALS: Ht 175.3 cm; Wt 78.6 kg
[~2020-10-17 08:55] MED LIST changes: +GABA-1181 PO; +OLAN7.5T22 PO; -OLAN7.5T9 PO
[2020-10-17 10:44] LABS: BASOPHILS % (AUTO) 0.4 % (0.0-2.0); EOSINOPHILS % (AUTO) 0.5 % (1.0-6.0); HEMATOCRIT 47.2 % (41-53); HEMOGLOBIN 16.1 g/dL (13.5-17.5); LYMPHOCYTES # (AUTO) 1.2 K/uL (1.0-4.8); LYMPHOCYTES % (AUTO) 11.7 % (22.0-44.0); MEAN CORPUSCULAR HEMOGLOBIN 32.5 pg (26.0-34.0); MEAN CORPUSCULAR VOLUME 96 fL (80-100); MONOCYTES # (AUTO) 0.5 K/uL (0.1-1.0); MONOCYTES % (AUTO) 4.6 % (2.0-9.0); NEUTROPHILS # (AUTO) 8.8 K/uL (1.8-7.7); NEUTROPHILS % (AUTO) 82.8 % (40.0-70.0); PLATELET COUNT (AUTO) 174 K/uL (150-450); RED BLOOD CELL COUNT(AUTO) 4.94 MIL/uL (4.50-5.90); RED CELL DISTRIBUTION WIDTH 12.9 % (11.5-14.5)
[2020-10-17 10:55] LABS: ANION GAP 9 mmol/L (8-16); CALCIUM, TOTAL 9.2 mg/dL (8.8-10.5); CARBON DIOXIDE 27 mmol/L (22-29); CHLORIDE 102 mmol/L (98-107); CREATININE 0.79 mg/dL (0.60-1.30); GLOMERULAR FILTR. RATE CALC > 60 mL/min (>60); GLUCOSE,RANDOM 105 mg/dL (70-110); SODIUM SERUM 138 mmol/L (136-145); UREA NITROGEN, BLOOD 6 mg/dL (7-18)
[2020-10-17 11:01] LABS: ALANINE AMINOTRANSFERASE 16 U/L (12-78); ALBUMIN 4.2 g/dL (3.4-5.0); ALKALINE PHOSPHATASE 97 U/L (46-116); ASPARTATE AMINOTRANSFERASE 16 U/L (15-37); BILIRUBIN,TOTAL 0.6 mg/dL (0.1-1.0); TOTAL PROTEIN, SERUM 7.3 g/dL (6.4-8.2)
[2020-10-17 11:15] LABS: AMPHET/METH SCREEN,URINE NEGATIVE (NEGATIVE); BARBITURATE SCREEN, URINE NEGATIVE (NEGATIVE); BENZODIAZEPINES SCREEN,URINE NEGATIVE (NEGATIVE); CANNABINOID SCREEN,URINE POSITIVE (NEGATIVE); COCAINE SCREEN,URINE NEGATIVE (NEGATIVE); METHADONE SCREEN, URINE NEGATIVE (NEGATIVE); OPIATE SCREEN,URINE NEGATIVE (NEGATIVE)
[2020-10-17 11:18] LABS: PHENCYCLIDINE SCREEN,URINE NEGATIVE (NEGATIVE)
[2020-10-17 11:58] VITALS: BP 154/80
== END 2020-10-17 12:00 | disposition home or self-care (01) ==
LOC: EMS 09:04
DX: F20.9 Schizophrenia, unspecified (principal); F17.210 Nicotine dependence, cigarettes, uncomplicated; F12.90 Cannabis use, unspecified, uncomplicated; Z79.899 Other long term (current) drug therapy
CPT/HCPCS: 36415; 80053; 80307; 85025; 99285; G0480